=== PATIENT | male | born 1990 | race Caucasian/White ===

== ENCOUNTER 2020-08-18 09:15 | Emergency (ER) | payer OTHER, SELFPAY ==
[2020-08-18 09:16] VITALS: BP 132/80; PULSE 77; RESP 16; TEMP 36.7; O2SAT 99; BMI 30.7
--- NOTE | 2020-08-18 10:01 | EX.ED.DYSGE1 ---
HPI History of Present Illness Chief Complaint: Back Narrative Narrative: Patient complains of lumbar back pain for the last few days he has been very busy with yard work pulling stumps etc. he had no trauma to his back. No numbness weakness paresthesias no bowel bladder complaints no history of back ailment except for occasional back strain. Seizure disorder is well controlled with medications normal bowel bladder habits Past medical history seizure disorder PFSH PFSH Home Medications lamotrigine [Lamictal] 225 mg PO BID 08/18/20 [History Last Taken Unknown] levetiracetam [Keppra] 1,500 mg PO BID 08/18/20 [History Last Taken Unknown] naproxen 500 mg PO BID #20 tab 08/18/20 [Rx Last Taken Unknown] Allergy/AdvReac Type Severity Reaction Status Date / Time No Known Allergies Allergy Verified 08/18/20 09:18 Social History Smoking Status: Never smoker ROS ROS ED ROS Narrative Low lumbar back pain only see below Constitutional Constitutional ED: Reports subjective, sweats and other; Denies chills, fever(s) or weight loss Eyes Eyes: Denies blurry vision or change in vision ENT ENT ED: Denies ear pain Cardiovascular Cardiovascular: Denies chest pain or palpitations Respiratory/Chest Respiratory/Chest: Denies dyspnea Gastrointestinal Gastrointestinal: Denies abdominal pain, nausea or vomiting Genitourinary Genitourinary ED: Denies dysuria or hematuria Musculoskeletal Musculoskeletal: Denies arthralgias or myalgias Integumentary Reports rash; Denies abscess Neurologic Neurologic: Denies weakness Psychiatric Psychiatric: Denies anxiety or depression Endocrine Endocrinology: Denies polydipsia or polyuria Allergic/Immunologic Allergic/Immunologic ED: Denies urticaria EXAM Physical Exam Narrative Exam Narrative: The patient's awake alert moving all 4 extremities he has vague pain to the lumbar back, he is able to stand and walk without difficulty heel right raise toe raise knee bend no signs of any signs of cauda equina neurologic disorder, the abdomen soft nontender the rest exam is unremarkable full range of motion of all extremities Const Vital Signs: 08/18/20 09:16 Temperature 98.1 F Temperature Source Temporal Pulse Rate 77 Respiratory Rate 16 Blood Pressure 132/80 H Blood Pressure Mean 97 Pulse Ox 99 Oxygen Delivery Method Room Air Positive well developed General Appearance ED: well developed HEENT Reports normocephalic Negative for trauma Eyes EOMs intact bilaterally Neck supple Chest Wall inspection of chest normal Resp normal respiratory effort Cardio regular rate GI non-tender and non-distended Back/Spine Back/Spine Narrative: unremarkable Extremity normal to inspection Neuro oriented x3 and CN's II-XII intact bilaterally Sensorium / Orientation: alert Psych mental status grossly normal Skin no rashes or lesions noted MDM MDM MDM Narrative Medical decision making narrative: Low lumbar back pain after heavy exertional type yard work pulling stumps etc. explained to the patient there are no signs of red flags no history to suggest fracture he agrees he is treated with Toradol IM discharged on Naprosyn [place] as a rescue medicine follow-up with outpatient providers and return for change in symptoms Home stable Final impression acute low lumbar back strain Discharge Plan Triage Chief Complaint: Back ED Provider: Bubba Dumas Dx/Rx/DC Orders Instructions: ED Back Pain (Acute or Chronic), ED Back Sprain/Strain Prescriptions: New naproxen 500 MG tablet 500 mg PO BID Qty: 20 RF: 0 No Action lamotrigine [Lamictal] 200 mg Tablet 225 mg PO BID RF: 0 levetiracetam [Keppra] 1,000 mg Tablet 1,500 mg PO BID RF: 0 Primary Care Provider: Catracho Maria Referrals: Catracho Maria DO [Primary Care Provider] -
[2020-08-18] MEDS: Ketorolac 60 MG/2 ML Vial IM (10:09)
== END 2020-08-18 10:40 | disposition home or self-care (01) ==
LOC: ED 09:59
PROVIDERS: Emergency Provider Emergency Medicine; PCP Family Medicine
DX: S39.012A Strain of muscle, fascia and tendon of lower back, initial encounter (principal); X58.XXXA Exposure to other specified factors, initial encounter; Y93.9 Activity, unspecified; Y92.9 Unspecified place or not applicable; G40.909 Epilepsy, unspecified, not intractable, without status epilepticus; Z79.899 Other long term (current) drug therapy
CPT/HCPCS: 96372; 99282